=== PATIENT | male | born 1955 | race Two or more races ===

== ENCOUNTER 2020-05-29 14:17 | Emergency (ER) | payer MEDICAID ==
[~2020-05-29] VITALS: Ht 177.8 cm; Wt 91.0 kg
[2020-05-29 14:18] VITALS: BP 146/80
== END 2020-05-29 15:30 | disposition left against medical advice (07) ==
LOC: ER 14:17
DX: R51.9 Headache, unspecified (principal); Z53.21 Procedure and treatment not carried out due to patient leaving prior to being seen by health care provider